=== PATIENT | female | born 1980 | race Two or more races ===

== ENCOUNTER 2017-03-15 03:35 | Emergency (ER) | payer BC ==
[~2017-03-15] VITALS: Ht 170.2 cm; Wt 92.5 kg
[2017-03-15] MEDS ORDERED: IV NORMAL SALINE 1000ML BAG 1,000 ML IV ONE (04:30)
[2017-03-15] MEDS ORDERED: ONDANSETRON PF 4 MG/2 ML VIAL. IV ONE ×2 (04:45→06:30)
[2017-03-15 04:51] LABS: BASO # 0.1 x10^3/uL (0.0-0.2); BASO % 1 % (0-3); EOS % 1 % (0-3); HEMOGLOBIN 11.3 g/dL (12.0-15.5); LYMPH # 2.3 x10^3/uL (1.0-4.8); LYMPH % 40 % (24-48); MEAN CORPUSCULAR HEMOGLOBIN 25 pg (25-35); MEAN CORPUSCULAR HGB CONC 32 g/dL (31-37); MEAN CORPUSCULAR VOLUME 76 fL (79-100); MONO % 7 % (0-9); NEUT % 51 % (31-73); PLATELET COUNT 181 x10^3/uL (140-400); RED BLOOD COUNT 4.61 x10^6/uL (3.50-5.40); RED CELL DISTRIBUTION WIDTH 17.6 % (11.5-14.5); WHITE BLOOD COUNT 5.8 x10^3/uL (4.0-11.0)
[2017-03-15 04:53] LABS: BILIRUBIN,URINE NEGATIVE (NEG); GLUCOSE,URINE NEGATIVE (NEG); NITRITE,URINE NEGATIVE (NEG); PROTEIN,URINE NEGATIVE (NEG-TRACE); UROBILINOGEN,URINE 0.2 mg/dL (0.2 mg/dL)
[2017-03-15 04:59] LABS: CALCIUM 8.7 mg/dL (8.5-10.1); CREATININE 0.7 mg/dL (0.6-1.0); GFR 95.2; POTASSIUM 3.3 mmol/L (3.5-5.1)
[2017-03-15 05:05] LABS: ALBUMIN 3.5 g/dL (3.4-5.0); TOTAL BILIRUBIN 0.2 mg/dL (0.2-1.0)
[2017-03-15 05:11] LABS: BACTERIA,URINE MODERATE /HPF (0-FEW); RBC,URINE 0 /HPF (0-2); SQUAMOUS EPITHELIAL CELL,UR MOD /LPF
--- NOTE | 2017-03-15 06:26 | PHYS DOC ---
Past Medical History Past Medical History: Other Additional Past Medical Histor: gastritis Past Surgical History: , Hysterectomy, Tubal ligation Alcohol Use: Rarely Drug Use: None Adult General Chief Complaint Chief Complaint: ABDOMINAL PAIN HPI HPI Patient is a 36 year old female who presents to the ER today complaining of tenderness and pain to her right lower quadrant. Patient has no history of hypertension diabetes liver lung or kidney problems. Patient does not smoke drink or do any drugs. Patient is not allergic to any medications. Patient reports she's had a total abdominal hysterectomy as well as 2 C-sections in the past. Patient reports the pain started on Wednesday has gotten worse over the course of the last couple days. Patient denies any fevers shakes chills dysuria frequency urgency. Patient has any nausea vomiting diarrhea. Patient has any vaginal bleeding or vaginal discharge. Patient denies any URI symptoms. Patient reports no change in pain with walking. Patient reports no change in pain with coughing. Patient reports that she did have some discomfort around her periumbilical area yesterday and she reports she still has an ache in that area. Review of systems Eyes: Denies change in visual acuity, redness, or eye pain HENT: Denies nasal congestion or sore throat Respiratory: Denies cough or shortness of breath Physical exam Constitutional: Well developed, well nourished, no acute distress, non-toxic appearance. HENT: Normocephalic, atraumatic, bilateral external ears normal, oropharynx moist, no oral exudates, nose normal. Eyes: PERRLA, EOMI, conjunctiva normal, no discharge. Neck: Normal range of motion, no tenderness, supple, no stridor. Cardiovascular:Heart rate regular rhythm, Lungs & Thorax: Bilateral breath sounds clear to auscultation Abdomen: Bowel sounds normal, soft tenderness, no masses, no pulsatile masses. Skin: Warm, dry, no erythema, no rash. Back: No tenderness, no CVA tenderness. Extremities: No tenderness, no cyanosis, no clubbing, ROM intact, no edema. Neurologic: Alert and oriented X 3, normal motor function, normal sensory function, no focal deficits noted. Psychologic: Affect normal, judgement normal, mood normal. Patient's ER physical exam is significant for tenderness to palpation to her right lower quadrant. Patient does have tenderness at McBurney's point. Patient does not present with any signs or symptoms O be consistent with an acute surgical abdomen at this time. Patient's ER workup is been significant for normal labs. Patient normal CBC, CMP , creatinine. Patient's UA was unremarkable. Patient was reexamined and still has tenderness to the right lower quadrant. CT scan with IV contrast has been ordered. Laboratory Tests Test 03/15/17 03:41 03/15/17 03:56 Urine Collection Type Unknown Urine Color Yellow Urine Clarity Clear Urine pH 6.0 Urine Specific Clayton 1.010 Urine Protein Negative mg/dL Urine Glucose (UA) Negative mg/dL Urine Ketones (Stick) Negative mg/dL Urine Blood Negative Urine Nitrite Negative Urine Bilirubin Negative Urine Urobilinogen Dipstick 0.2 mg/dL Urine Leukocyte Esterase Negative Urine RBC 0 /HPF Urine WBC 1-4 /HPF Urine Squamous Epithelial Cells Mod /LPF Urine Bacteria Moderate /HPF Urine Mucus Slight /LPF White Blood Count 5.8 x10^3/uL Red Blood Count 4.61 x10^6/uL Hemoglobin 11.3 g/dL Hematocrit 35.0 % Mean Corpuscular Volume 76 fL Mean Corpuscular Hemoglobin 25 pg Mean Corpuscular Hemoglobin Concent 32 g/dL Red Cell Distribution Width 17.6 % Platelet Count 181 x10^3/uL Neutrophils (%) (Auto) 51 % Lymphocytes (%) (Auto) 40 % Monocytes (%) (Auto) 7 % Eosinophils (%) (Auto) 1 % Basophils (%) (Auto) 1 % Neutrophils # (Auto) 2.9 x10^3uL Lymphocytes # (Auto) 2.3 x10^3/uL Monocytes # (Auto) 0.4 x10^3/uL Eosinophils # (Auto) 0.1 x10^3/uL Basophils # (Auto) 0.1 x10^3/uL Sodium Level 138 mmol/L Potassium Level 3.3 mmol/L Chloride Level 102 mmol/L Carbon Dioxide Level 26 mmol/L Anion Gap 10 Blood Urea Nitrogen 8 mg/dL Creatinine 0.7 mg/dL Estimated GFR (Cockcroft-Gault) 95.2 BUN/Creatinine Ratio 11 Glucose Level 121 mg/dL Calcium Level 8.7 mg/dL Total Bilirubin 0.2 mg/dL Aspartate Amino Transf (AST/SGOT) 32 U/L Alanine Aminotransferase (ALT/SGPT) 64 U/L Alkaline Phosphatase 53 U/L Total Protein 7.0 g/dL Albumin 3.5 g/dL Albumin/Globulin Ratio 1.0 Lipase 134 U/L Current Medications Medications (Trade) Dose Ordered Sig/Mary Route PRN Reason Start Time Stop Time Status Last Admin Dose Admin Ondansetron HCl (Zofran) 4 mg 1X ONCE IV 03/15/17 04:45 03/15/17 04:46 DC 03/15/17 04:37 4 MG Sodium Chloride 1,000 ml @ 1,000 mls/hr 1X ONCE IV 03/15/17 04:30 03/15/17 05:29 DC 03/15/17 04:37 1,000 MLS/HR Assessment and plan This is a 36-year-old female who presents to the ER today with right lower quadrant pain. Patient's labs a been unremarkable however her symptoms are concerning for possible appendicitis. A CT scan of the abdomen pelvis have been obtained and disposition will be pending that report. Current Medications Current Medications Current Medications Medications (Trade) Dose Ordered Sig/Mary Start Time Stop Time Status Last Admin Dose Admin Hydromorphone HCl (Dilaudid) 1 mg 1X ONCE 03/15/17 06:30 03/15/17 06:31 DC 03/15/17 07:04 1 MG Info (Do NOT chart on this entry -- for MONITORING) 1 each PRN DAILY PRN 03/15/17 06:30 03/15/17 08:06 DC Iohexol (Omnipaque 300 Mg/ml) 75 ml 1X ONCE 03/15/17 06:30 03/15/17 06:31 DC 03/15/17 06:51 75 ML Ketorolac Tromethamine (Toradol) 15 mg 1X ONCE 03/15/17 06:30 03/15/17 06:31 DC 03/15/17 07:03 15 MG Ondansetron HCl (Zofran) 4 mg 1X ONCE 03/15/17 06:30 03/15/17 06:31 DC 03/15/17 07:03 4 MG Sodium Chloride 1,000 ml @ 1,000 mls/hr 1X ONCE 03/15/17 04:30 03/15/17 05:29 DC 03/15/17 04:37 1,000 MLS/HR Allergies Allergies Allergies Coded Allergies Type Severity Reaction Last Updated Verified Sulfa (Sulfonamide Antibiotics) Allergy Intermediate Swelling 08/31/13 Yes Current Patient Data Vital Signs Vital Signs Date Time Temp Pulse Resp B/P (MAP) Pulse Ox O2 Delivery O2 Flow Rate FiO2 03/15/17 07:09 74 158/79 (105) 03/15/17 07:04 16 03/15/17 04:45 94 Room Air 03/15/17 03:45 98.2 98.2 Lab Values Laboratory Tests Test 03/15/17 03:41 03/15/17 03:56 Urine Collection Type Unknown Urine Color Yellow Urine Clarity Clear Urine pH 6.0 Urine Specific Clayton 1.010 Urine Protein Negative mg/dL (NEG-TRACE) Urine Glucose (UA) Negative mg/dL (NEG) Urine Ketones (Stick) Negative mg/dL (NEG) Urine Blood Negative (NEG) Urine Nitrite Negative (NEG) Urine Bilirubin Negative (NEG) Urine Urobilinogen Dipstick 0.2 mg/dL (0.2 mg/dL) Urine Leukocyte Esterase Negative (NEG) Urine RBC 0 /HPF (0-2) Urine WBC 1-4 /HPF (0-4) Urine Squamous Epithelial Cells Mod /LPF Urine Bacteria Moderate /HPF (0-FEW) Urine Mucus Slight /LPF White Blood Count 5.8 x10^3/uL (4.0-11.0) Red Blood Count 4.61 x10^6/uL (3.50-5.40) Hemoglobin 11.3 g/dL (12.0-15.5) L Hematocrit 35.0 % (36.0-47.0) L Mean Corpuscular Volume 76 fL (79-100) L Mean Corpuscular Hemoglobin 25 pg (25-35) Mean Corpuscular Hemoglobin Concent 32 g/dL (31-37) Red Cell Distribution Width 17.6 % (11.5-14.5) H Platelet Count 181 x10^3/uL (140-400) Neutrophils (%) (Auto) 51 % (31-73) Lymphocytes (%) (Auto) 40 % (24-48) Monocytes (%) (Auto) 7 % (0-9) Eosinophils (%) (Auto) 1 % (0-3) Basophils (%) (Auto) 1 % (0-3) Neutrophils # (Auto) 2.9 x10^3uL (1.8-7.7) Lymphocytes # (Auto) 2.3 x10^3/uL (1.0-4.8) Monocytes # (Auto) 0.4 x10^3/uL (0.0-1.1) Eosinophils # (Auto) 0.1 x10^3/uL (0.0-0.7) Basophils # (Auto) 0.1 x10^3/uL (0.0-0.2) Sodium Level 138 mmol/L (136-145) Potassium Level 3.3 mmol/L (3.5-5.1) L Chloride Level 102 mmol/L (98-107) Carbon Dioxide Level 26 mmol/L (21-32) Anion Gap 10 (6-14) Blood Urea Nitrogen 8 mg/dL (7-20) Creatinine 0.7 mg/dL (0.6-1.0) Estimated GFR (Cockcroft-Gault) 95.2 BUN/Creatinine Ratio 11 (6-20) Glucose Level 121 mg/dL (70-99) H Calcium Level 8.7 mg/dL (8.5-10.1) Total Bilirubin 0.2 mg/dL (0.2-1.0) Aspartate Amino Transferase (AST) 32 U/L (15-37) Alanine Aminotransferase (ALT) 64 U/L (14-59) H Alkaline Phosphatase 53 U/L (46-116) Total Protein 7.0 g/dL (6.4-8.2) Albumin 3.5 g/dL (3.4-5.0) Albumin/Globulin Ratio 1.0 (1.0-1.7) Lipase 134 U/L (73-393) Laboratory Tests 03/15/17 03:56 Laboratory Tests 03/15/17 03:56 Microbiology 03/15/17 Urine Culture - Final, Complete 03/15/17 Urine Culture Result 1 (SHALINI) - Final, Complete EKG EKG [] Radiology/Procedures Radiology/Procedures [] Course & Med Decision Making Course & Med Decision Making Pertinent Labs and Imaging studies reviewed. (See chart for details) [] Dragon Disclaimer Dragon Disclaimer This electronic medical record was generated, in whole or in part, using a voice recognition dictation system. Departure Departure Impression: Primary Impression: Abdominal pain Disposition: 01 HOME, SELF-CARE Condition: STABLE Referrals: UNKNOWN PCP NAME (PCP) GARY VELAZQUEZ MD Patient Instructions: Abdominal Pain, Possible Early Appendicitis Additional Instructions: Thank you for allowing us to participate in your care today. Followup with your primary care physician in 3 days if your symptoms do not improve. Call your Primary Doctor tomorrow and inform them of your visit today. If you do not have a primary care provider you can ask for a list of our primary care providers. Return to the emergency department you have any new or concerning findings. This should be evaluated by the primary care physician and any necessary consulting services for continued management within a few days after discharge. Return to emergency room if you have any new or concerning symptoms including but not limited to fever, chills, nausea, vomiting, intractable pain, any new rashes, chest pain, shortness of air, uncontrolled bleeding, difficulty breathing, and/or vision loss. You may have been prescribed medication that can change in your level of thinking and ability to operate machinery. These medications include hydrocodone and Ativan. Also, Benadryl has been known to do this as well. Be sure to check with your pharmacist and ask if the medications you've prescribed can affect your level of consciousness. I recommend not operating heavy machinery or driving while on medication such as these. Scripts Potassium Chloride (POTASSIUM CHLORIDE) 10 Meq Capsule.er 10 MEQ PO DAILY for 5 Days, #5 TAB.SR Prov: FE MONTEMAYOR MD 03/15/17 Ondansetron (ZOFRAN ODT) 4 Mg Tab.rapdis 1 TAB SL PRN Q8HRS Y for NAUSEA, #6 TAB Prov: FE MONTEMAYOR MD 03/15/17 Hydrocodone Bit/Acetaminophen (HYDROCODONE-APAP 5-325 ) 1 Each Tablet 1 TAB PO PRN Q6HRS Y for PAIN, #15 TAB 0 Refills Be careful as this medication may cause you to be drowsy or tired. Do not drive on this medication. Prov: FE MONTEMAYOR MD 03/15/17 Assessment/Plan Assessment/Plan 36-year-old female presenting to the emergency department earlier prior to the beginning of my shift signed out to me at 6 AM. She presented initially with abdominal pain. Pain is in the right lower quadrant without any associated factors. Triage vital signs show her to be afebrile with a normal heart rate. Plan at sign out was to follow-up on CT scans to rule out appendicitis. Reviewing the patient's blood work the patient has normal CBC with a normal white count. Her potassium is mildly low. Otherwise unremarkable. Urinalysis shows moderate bacteriuria with squamous cells likely contaminated given the negative nitrite and negative leuk esterase. The patient did not have dysuria or polyuria. CT scan of the abdomen does not show any evidence of appendicitis. On examination the patient the patient's abdomen is soft and nontender at this time. Negative McBurney's point at this time. I explained to the patient face-to -face discharge and return precautions. I also gave her a handout for early appendicitis. She is feeling better at this time and comfortable with discharge. She is prescribed oral pain medication and nausea medication to go home with. The patient was then discharged home in stable condition to follow up with their primary care physician over the next 2-3 days. They were to return if their symptoms worsened or if they were concerned for any reason. Face -to-face discharge instructions and return precautions were given. Patient's questions were answered to their satisfaction. Patient is comfortable plan. Problems: TARIQ BARR MD Mar 15, 2017 06:26 FE MONTEMAYOR MD Mar 15, 2017 07:46
[2017-03-15] MEDS ORDERED: IOHEXOL 300 MG/ML 75 ML VIAL IV ONE (06:30)
[2017-03-15] MEDS ORDERED: KETOROLAC 15 MG/ML VIAL. IV ONE (06:30)
[2017-03-15] MEDS ORDERED: HYDROmorphone 2 MG/ML VIAL IV ONE (06:30)
[2017-03-15] MEDS ORDERED: CONTRAST GIVEN MC PRN (06:30)
[2017-03-15 07:09] VITALS: BP 158/79
--- NOTE | 2017-03-15 07:25 | RAD ---
CT of the abdomen and pelvis with contrast, 03/15/2017: History: Right lower quadrant abdominal pain Multidetector CT imaging was performed following an IV bolus injection of iodinated contrast material. No oral contrast material was administered for this exam. Comparison is made to a study from 02/17/2016. There is no evidence of a hepatic mass or bile duct dilatation. The gallbladder is partially collapsed. No pancreatic abnormality is seen. The spleen is of normal size. No renal or adrenal abnormality is detected. The abdominal aorta is of normal caliber. No abdominal or pelvic adenopathy is seen. The uterus is surgically absent. The bowel loops are not dilated. A portion of the appendix is visualized and it shows no abnormality. No free fluid or free air is evident in the abdomen or pelvis. IMPRESSION: No acute abdominal or pelvic abnormality is detected. PQRS Compliance Statement: One or more of the following individualized dose reduction techniques were utilized for this examination: 1. Automated exposure control 2. Adjustment of the mA and/or kV according to patient size 3. Use of iterative reconstruction technique
[2017-03-15] MEDS ORDERED: HYDR-2758 PO (07:46)
[2017-03-15] MEDS ORDERED: ONDA4TAB10 SL (07:46)
[2017-03-15] MEDS ORDERED: POTASSIUM CHLO10 MEQ PO (07:49)
== END 2017-03-15 08:06 | disposition home or self-care (01) ==
LOC: ER 03:35
DX: R10.31 Right lower quadrant pain (principal); Z90.710 Acquired absence of both cervix and uterus; Z98.51 Tubal ligation status; Z88.2 Allergy status to sulfonamides
CPT/HCPCS: 36415; 74177; 80053; 81001; 83690; 85025; 87086; 96361; 96374; 96375; 96376; 99285; J1170; J1885; J2405; J7030; Q9967

== ENCOUNTER → 2017-03-17 | Outpatient (CLI) | payer OTHER ==
[2017-03-15 07:09] VITALS: BP 158/79
[~2017-03-17] MED LIST: HYDR-2758 PO; ONDA4TAB10 SL; POTASSIUM CHLO10 MEQ PO
--- NOTE | 2017-03-17 14:08 | RAD ---
Limited abdominal ultrasound 03/17/2017 at 1140 hours Indication: Abdominal pain around umbilicus Comparison: None available Technique: Sonographic imaging of the umbilicus was performed. Findings: No facial defect is identified to suggest an abdominal hernia in the region of the umbilicus. There is no fluid collection. No subcutaneous mass is identified. No significant change in appearance with Valsalva. Impression: No sonographic evidence for umbilical hernia.
--- NOTE | 2017-03-17 14:11 | RAD ---
Ultrasound pelvis 03/17/2017 at 1143 hours Indication: Abdominal pain in the umbilical region. Comparison: None Technique: Sonographic imaging of the pelvis was performed utilizing transabdominal imaging. Grayscale, color Doppler and spectral waveform analysis was utilized. Findings: Uterus is surgically absent. Right ovary measures 3.0 x 2.2 x 2.8 cm. Arterial and venous waveform are identified at the time of imaging utilizing color Doppler and spectral waveform analysis. Left ovary is not visualized by transabdominal imaging. No free fluid is identified. Impression: 1. Surgically absent uterus. Left ovary not visualized by transabdominal imaging. 2. Normal appearance of the right ovary with perfusion noted at the time of imaging.
== END | disposition home or self-care (01) ==
LOC: US 10:40
PROVIDERS: ATTEND Obstetrics & Gynecology
DX: R10.9 Unspecified abdominal pain (principal)
CPT/HCPCS: 76705; 76857

== ENCOUNTER → 2017-10-05 | Outpatient (CLI) | payer OTHER | END | disposition home or self-care (01) | LOC: KCIC MRI 14:37 | DX: M50.222 Other cervical disc displacement at C5-C6 level (principal); M25.512 Pain in left shoulder | CPT/HCPCS: 72141 ==

== ENCOUNTER → 2017-10-29 | Outpatient (CLI) | payer OTHER | END | disposition home or self-care (01) | LOC: KCIC MRI 14:52 | DX: M25.512 Pain in left shoulder (principal) | CPT/HCPCS: 73221 ==

== ENCOUNTER 2017-11-20 21:52 | Emergency (ER) | payer OTHER ==
[2017-11-20] MEDS ORDERED: HYDROcodone/APAP 5/325MG 1 TAB TABLET PO (22:45)
[2017-11-20] MEDS ORDERED: TETANUS AND DIPHTHERIA TOX/PF 0.5 ML DISP.SYRIN. VAX IM (22:45)
[2017-11-20] MEDS: DIPHTH,PERTUSS(ACELL),TET TOX 0.5 ML DISP.SYRIN. VAX IM (23:15)
== END 2017-11-20 23:19 | disposition home or self-care (01) ==
LOC: ER 23:19
DX: S61.211A Laceration without foreign body of left index finger without damage to nail, initial encounter (principal); Z88.2 Allergy status to sulfonamides; W23.0XXA Caught, crushed, jammed, or pinched between moving objects, initial encounter; Y93.89 Activity, other specified; Y99.8 Other external cause status; Y92.89 Other specified places as the place of occurrence of the external cause
CPT/HCPCS: 12001; 73140; 90471; 90715; 99284-25